=== PATIENT | female | born 1995 | race Caucasian/White ===

== ENCOUNTER 2023-10-01 07:27 | Outpatient (CLI) | payer MEDICAID, SELFPAY ==
--- NOTE | 2023-10-01 08:00 | CT_ITS ---
WS: [id number] CT ABDOMEN PELVIS TECHNIQUE: Contrast-enhanced CT of the abdomen and pelvis with coronal and sagittal reformatted image s. CLINICAL INFORMATION: BILATERAL LOWER QUADRAN ABDOMINAL SWELLING COMPARISON: None. DLP: 271.[address] scans at [facility] use at least one of these dose optimization techniques: automated e xposure control; mA and/or kV adjustment per patient size (includes targeted exams where dose is matc hed to clinical indication); or iterative reconstruction. FINDINGS: Lung bases are well aerated. Normal liver. Normal spleen. Normal GE junction. Portal vein and splenic vein are patent. Normal pancreas. Adrenal glands are normal. Normal renal parenchymal enhancement. N o hydronephrosis in either kidney. Normal caliber abdominal aorta. Mild diffuse body wall anasarca. N o evidence of subcutaneous mass or lesion in the periumbilical area. Mild induration in the subcutane ous fat can be seen with subcutaneous abdominal injections. Recommend clinical correlation. Urine distended bladder. Mild RIGHT colon and moderate sigmoid constipation. No evidence of small or large bowel obstruction. No other suspicious findings. IMPRESSION: 1. Mild induration in the periumbilical subcutaneous fat in the areas of concern. This can be seen w ith subcutaneous abdominal injections. Recommend clinical correlation. 2. Otherwise normal subcutaneous abdominal fat in the periumbilical area. Mild diffuse subcutaneous body wall anasarca involving the abdomen and pelvis. 3. No acute intra-abdominal findings. 4. Mild RIGHT colon and moderate sigmoid constipation. 5. No other suspicious findings.
[2023-10-01] MEDS: iohexol 350 mg/mL 500 mL Btl (per mL) PO (09:09)
[2023-10-01] MEDS: iohexol 350 mg/mL 500 mL Btl (per mL) IV (09:09)
== END 2023-10-01 07:28 | disposition home or self-care (01) ==
LOC: RAD 07:30
PROVIDERS: Visit Provider Nurse Practitioner Occupational Health
DX: R19.04 Left lower quadrant abdominal swelling, mass and lump (principal); K59.00 Constipation, unspecified
CPT/HCPCS: 74177; Q9967

== ENCOUNTER → 2024-03-04 14:02 | Outpatient (BNVA) | payer MEDICAID, SELFPAY | PROVIDERS: PCP Nurse Practitioner Occupational Health; Visit Provider Internal Medicine | DX: R07.9 Chest pain, unspecified (principal) | CPT/HCPCS: 93005 ==

== ENCOUNTER → 2024-11-24 13:16 | Outpatient (BNVA) | payer MEDICAID, SELFPAY | PROVIDERS: PCP Nurse Practitioner Occupational Health; Visit Provider Nurse Practitioner Family | DX: R00.2 Palpitations (principal); I49.8 Other specified cardiac arrhythmias | CPT/HCPCS: 93005 ==

== ENCOUNTER 2025-02-17 21:31 | Emergency (ER) | payer MEDICAID, SELFPAY ==
[2025-02-17] VITALS (10 sets, daily range): BP systolic 117–137; BP diastolic 75–88; PULSE 106–123; RESP 16–18; TEMP 36.7; O2SAT 97–100
--- OUTSIDE RECORDS SUMMARY | 2025-02-17 21:38 | XMS_ITS | Clinical Summary ---
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
--- OUTSIDE RECORDS SUMMARY | 2025-02-17 21:38 | XMS_ITS | Patient Health Record ---
Author Organization [facility] Address [address], [place] [id number] Care Team Providers Care Paper And Prints Restorer Name Role Phone Jennie Ghazal Primary Care Provider [phone] Allergies Allergen (clinical drug ingredient) Drug/Non Drug Allergy documented on EMR Reaction Allergy Type Onset Date Status all types of tapes (uncoded) Unknown Allergy Active Reason For Referral No Information Medications Medication SIG (Take, Route, Frequency, Duration) Notes Start Date End Date Status Sertraline HCl 100 MG TAKE 1 TABLET BY M OUTH EVERY DAY for 90 Active Cyanocobalamin 2000 MCG 1 tablet Orally Once a day 08/27/2016 Active Omeprazole 40 MG TAKE ONE CAPSULE BY MOUTH 1/2 HOUR BEFORE BREAKFAST for 90 Active Mehrsrtvci-QVSD-Jupjlwsr 50-325-40 MG 1 tablet as needed Orally every 4 hrs 11/06/2016 Active Vitamin D 2000 UNIT 1 tablet Orally Once a day 08/27/2016 Active Xanax 0.25 MG 1 tablet Orally Thre e times a day 08/05/2016 Active Social History Tobacco Use: Social History Observation Description Date Details (start date - stop date) Never Smoker NA - NA Tobacco Use/Smoking Question Answer Notes Are you a nonsmoker Additional Findings: Tobacco Non-User Current no n-smoker Alcohol Screen (Audit-C) Question Answer Notes Did you have a drink containing alcohol in the p ast year? No Points 0 Interpretation Negative Problems Problem Type SNOMED Code ICD Code Onset Dates Problem Status W/U Status Risk Notes Problem Pernicious anemia (91122577) Vitamin B12 deficiency anemia due to intrinsic factor deficiency (D51.0) Active confirmed Problem Vitamin D deficiency (71661853) Vitamin D deficiency, unspecified (E55.9) Active confirmed Problem Moderate major depression, single episode (46834327) Major depressive disorder, single episode, moderate (F32.1) Active confirmed Problem Anxiety disorder (177672560) Anxiety disorder, unspecified (F41.9) Active confirmed Problem Otitis media (49705976) Otitis media, unspecified, bilateral (H66.93) Active confirmed Problem Acute sinusitis (22356719) Acute sinusitis, unspecified (J01.90) Active confirmed Problem Allergic rhinitis (34818968) Allergic rhinitis, unspecified (J30.9) Active confirmed Problem Gastro-esophagea l reflux disease without esophagitis (419073551) Gastro-esophage al reflux disease without esophagitis (K21.9) Active confirmed Problem Headache (73320583) Headache (R51) Active confirmed Problem Body mass index 35.00 to 39.99 (942948075066937 ) Body mass index (BMI) 36.0-36.9, adult (Z68.36) Active confirmed Plan Of Treatment No Information Insurance Providers Payer Name Payer Address Payer Phone Subscriber Number Group Number Insured Name Patient Relationship to Insured Coverage Start Date Coverage End Date [facility] [address] [place] [address] [id number] TANMAY MARX Self - patient is the insured Medical (General) History Medical History History ICD Code anxiety depression tachacardia
--- NOTE | 2025-02-17 22:10 | ECG_ITS ---
[facility] Date: 2025-02-17 Pat Name: Joellen Reyes Department: Room: Gender: Female Shellfish Weigher: : 1995 Requested By: Dilshad Hernandez Order Number: [id number] Jay MD: Ra Lilly M.D. Measurements Intervals [place] Rate: 109 P: 43 [place]: 124 QRS: 41 QRSD: 114 T: 34 QT: 268 QTc: 361 Interpretive Statements SINUS TACHYCARDIA MODERATE INTRAVENTRICULAR CONDUCTION DELAY [110+ ms QRS DURATION] NONSPECIFIC T-WAVE ABNORMALITY ABNORMAL RHYTHM ECG Compared to ECG 11/24/2024 13:26:41 Intraventricular conduction delay now present T-wave abnormality now present Sinus rhythm no longer present Sinus arrhythmia no longer present Electronically Signed On 02-19-2025 15:27:13 CDT by Ra Lilly M.D. [id number]
[2025-02-17 22:14] LABS: Hematocrit 41.0 % (36-47); Hemoglobin 13.20 g/dL (11.27-16.99); Mean Corpuscular HGB Conc 32.2 g/dL (30-55); Mean Corpuscular Hemoglobin 25.6 pg (27-33); Mean Corpuscular Volume 79.5 fl (85-98); Nucleated Red Blood Cells % 0 %; Platelet Count 274 10^3/cmm (157-399); Red Blood Count 5.16 10^6/uL (3.85-5.65); White Blood Count 6.36 10^3/uL (3.29-11.43)
[2025-02-17 22:29] LABS: Troponin(5th) Baseline 24 ng/L (0-10)
[2025-02-17 22:33] LABS: Alanine Aminotransferase 12 U/L (0-33); Albumin Level 3.4 g/dL (3.5-5.2); Alkaline Phosphatase 59 U/L (35-105); Anion Gap 13.0 (5-19); Aspartate Amino Transferase 16 U/L (0-32); Blood Urea Nitrogen 5 mg/dL (6-20); Calcium 7.3 mg/dL (8.5-10.5); Carbon Dioxide 24 mmol/L (22-29); Chloride 111 mmol/L (98-107); Creatinine Clr Calc Pharmacy 123.0576; Globulin 2.2 g/dL (1.3-4.6); Glucose 76 mg/dL (65-115); Magnesium 1.7 mg/dL (1.7-2.3); Osmolality Calculated 296 mOsm/kg (285-295); Potassium 3.0 mmol/L (3.5-5.1); Sodium 145 mmol/L (136-145); Total Protein 5.6 g/dL (6.6-8.7)
--- NOTE | 2025-02-17 22:38 | ED_ITS ---
HPI - Arrhythmia/Palpitations 2 General: Chief Complaint: Arrhythmia/Palpitations Stated Complaint: Can't get heart rate down currently @155 Time Seen by Provider: 02/17/25 21:48 History of Present Illness: 29-year-old female presents with rapid h eart rate. Patient reports that at 1 point her heart rate got very rapid with rates into the 220s and calm down. Continued to stay in the 120s so presented to the ER. Had some maybe mild chest pain and discomfort in bilateral arms. Patient is currently on hormone replacement therapy. Patient is also on Vyvanse. Patient was recently cleared to start the vitamin advance by lead nurse because she has had episode of rapid heart rate in the past. Associated symptoms: Deny nausea, syncope or vomiting Related Data Home Medications ?Medication ?Instructions ?Recorded ?Confirmed aspirin 81 mg tablet,delayed 81 mg PO DAILY 03/04/24 0 11/24/24 release losartan 25 mg tablet 25 mg PO DAILY 03/04/2411/10 propranolol 10 mg tablet 10 mg PO DAILY PRN 03/04/24 11/24/24 testosterone cypionate 200 mg/mL 80 mg SUBCUT .[id number] 03/04/24 11/24/24 intramuscular kit (Testone CIK) traiamcinolone acetonide PO 03/04/24 11/24/24 venlafaxine 37.5 mg tablet mg PO 11/24/24 11/24/24 Allergies Allergy/AdvReac Type Severity Reaction Status Date / Time adhesive AdvReac schumacher skin Verified 02/17/25 21:42 Review of Systems 2 Const: Denies: fever(s) or chills Card: Reports: chest pain and palpitations; Denies: lightheadedness or syncope Resp: Denies: dyspnea or productive cough GI: Denies: abdominal pain, nausea or vomiting Musc: Denies: neck pain or back pain PFSH ED 2 PFSH: Social History Smoking and tobacco/nicotine status: never used tobacco/nicotine Physical Exam 2 Const: COMMON NORMALS: no acute distress, patient oriented x3 and alert Resp: COMMON NORMALS: normal respiratory effort, No use of accessory muscles and clear to auscultation bilaterally AUSCULTATION: clear to auscultation bilaterally Cardio: COMMON NORMALS: regular rhythm RATE: tachycardic RHYTHM: regular rhythm GI: COMMON NORMALS: Soft to palpation and non-tender PALPATION: Yes Soft to palpation Neuro: COMMON NORMALS: patient oriented x3, moves all extremities and no focal motor deficits SENSORIUM/ORIENTATION: Yes alert Psych: COMMON NORMALS: cooperative and speech normal SPEECH: Yes normal speech Course 2 Vital Signs: Vital signs: Vital Signs Temperature 98.0 F 02/17/25 21:34 Pulse Rate 100 02/18/25 03:30 Respiratory Rate 15 02/18/25 03:30 Blood Pressure 129/86 02/18/25 03:30 Pulse Oximetry 100 02/18/25 03:30 Oxygen Delivery Me thod Room Air 02/17/25 22:45 MDM - Arrhythmia/Palpitations Medical Decision Making Patient's diagnostic studies were ordered and reviewed. Patient had 3 stable troponins a likely near baseline. Patient's heart rate improved significantly with IV fluids and she felt significantly better. Patient was given some IV fluids I suspect she was likely mildly dehydrated with the appropriate response to the heart rate. Heart rates went from the 120s down into the 80s at discharge. Patient was recommended follow-up with cardiology for further outpatient evaluation. She was stable upon discharge Lab Data 02/17/25 21:56 02/17/25 21:56 Laboratory Results WBC 6.36 10^3/uL (3.29-11.43) 02/17/25 21:56 RBC 5.16 10^6/uL (3.85-5.65) 02/17/25 21:56 Hgb 13.20 g/dL (11.27-16.99) 02/17/25 21:56 Hct 41.0 % (36-47) 02/17/25 21:56 MCV 79.5 fl (85-98) L 02/17/25 21:56 MCH 25.6 pg (27-33) L 02/17/25 21:56 MCHC 32.2 g/dL (30-55) 02/17/25 21:56 RDW 12.9 % (12.1-15.1) 02/17/25 21:56 Plt Count 274 10^3/cmm (157-399) 02/17/25 21:56 MPV 9.4 fL (7.4-10.4) 02/17/25 21:56 Neut % (Auto) 73.8 % 02/17/25 21:56 Lymph % (Auto) 17.9 % 02/17/25 21:56 [place] % (Auto) 6.9 % 02/17/25 21:56 Eos % (Auto) 0.3 % 02/17/25 21:56 Baso % (Auto) 0.6 % 02/17/25 21:56 Neut # (Auto) 4.69 10^3/uL (1.8-7.7) 02/17/25 21:56 Lymph # (Auto) 1.1 10^3/uL (0.8-4.8) 02/17/25 21:56 [place] # (Auto) 0.4 10^3/uL (0.2-0.9) 02/17/25 21:56 Eos # (Auto) 0.0 10^3/uL (0.0-0.8) 02/17/25 21:56 Baso # (Auto) 0.0 10^3/uL (0.0-0.1) 02/17/25 21:56 Nucleated RBC % (auto) 0 % 02/17/25 21:56 Nucleated RBCs # 0.0 /100WBC 02/17/25 21:56 D-Dimer 0.60 ug/mLFEU (0-0.59) H 02/17/25 21:56 Sodium 145 mmol/L (136-145) 02/17/25 21:56 Potassium 3.0 mmol/L (3.5-5.1) L 02/17/25 21:56 Chloride 111 mmol/L (98-107) H 02/17/25 21:56 Carbon Dioxide 24 mmol/L (22-29) 02/17/25 21:56 Anion Gap 13.0 (5-19) 02/17/25 21:56 BUN 5 mg/dL (6-20) L 02/17/25 21:56 Creatinine 0.7 mg/dL (0.5-0.9) 02/17/25 21:56 GFR Calculation 100.4 mL/min (90-130) 02/17/25 21:56 Glucose 76 mg/dL (65-115) 02/17/25 21:56 Calculated Osmolality 296 mOsm/kg (285-295) H 02/17/25 21:56 Calcium 7.3 mg/dL (8.5-10.5) L 02/17/25 21:56 Magnesium 1.7 mg/dL (1.7-2.3) 02/17/25 21:56 Total Bilirubin 0.3 mg/dL (0.15-1.2) 02/17/25 21:56 AST 16 U/L (0-32) 02/17/25 21:56 ALT 12 U/L (0-33) 02/17/25 21:56 Alkaline Phosphatase 59 U/L (35-105) 02/17/25 21:56 Troponin T 5th Gen ng/L 20 ng/L (0-10) H 02/18/25 02:20 Troponin T Baseline 24 ng/L (0-10) H 02/17/25 21:56 Troponin T 120 Minute 27.46 ng/L (0-10) H 02/18/25 00:10 Delta Troponin T 3.46 ABS# (0-10) 02/18/25 00:10 Total Protein 5.6 g/dL (6.6-8.7) L 02/17/25 21:56 Albumin 3.4 g/dL (3.5-5.2) L 02/17/25 21:56 Globulin 2.2 g/dL (1.3-4.6) 02/17/25 21:56 Urine Color Yellow (Yellow) 02/17/25 23:24 Urine Appearance Clear (CLEAR) 02/17/25 23:24 Urine pH 7.0 (5-7) 02/17/25 23:24 Ur Specific [place] 1.008 (1.005-1.030) 02/17/25 23:24 Urine Protein Negative (Negative) 02/17/25 23:24 Urine Glucose (UA) Negative (Normal) 02/17/25 23:24 Urine Ketones Negative (Negative) 02/17/25 23:24 Urine Blood Negative (Negative) 02/17/25 23:24 Urine Nitrate Negative (Negative) 02/17/25 23:24 Urine Bilirubin Negative (Negative) 02/17/25 23:24 Urine Urobilinogen 1.0 mg/dL (Negative) 02/17/25 23:24 Ur Leukocyte Esterase 1+ (Negative) A 02/17/25 23:24 Urine RBC 0-2 /hpf (0-2) 02/17/25 23:24 Urine WBC 6-10 /hpf (0-5) 02/17/25 23:24 Ur Squamous Epith Cells 0-5 /hpf (0-5) 02/17/25 23:24 Amorphous Sediment Not Reportable 02/17/25 23:24 Urine Bacteria None seen /hpf (NONE) 02/17/25 23:24 Hyaline Casts 0-4 /lpf H 02/17/25 23:24 No radiology studies performed this visit Discharge Plan Discharge Patient Disposition: Home Clinical Impression: Palpitations, Sinus tachycardia Condition: Stable Prescriptions: No Action aspirin 81 mg tablet,delayed release (DR/EC) 81 mg PO DAILY Testone CIK 200 mg/mL kit 80 mg SUBCUT .[id number] propranolol 10 mg tablet 10 mg PO DAILY PRN losartan 25 mg tablet 25 mg PO DAILY traiamcinolone acetonide PO venlafaxine 37.5 mg tablet PO Discharge Orders: Discharge ED (Routine); Ordered 02/18/25 Ordered By: Dilshad Hernandez Referrals: Padmini Sheth FNP [Primary Care Provider] Discharge Diet: Usual diet Discharge Activity: Increase activity as tolerated Patient Instructions: Tachycardia (ED), Opioid Safety, Pain Management, Patient Portal & [place] Instructions Activity Restrictions/Additional Instructions: Please follow-up with the lead nurse for further evaluation and recheck of your symptoms. Return to the ER as needed. Print Language: Chinese Coding Level of Care Code ED Special Education Secretary for Fredy Reyes
[2025-02-17 23:50] LABS: Add Urine Microscopic? YES; Glucose Urine UA Negative (Normal); Nitrate Urine Negative (Negative); Specific Gravity, Urine 1.008 (1.005-1.030)
[2025-02-18] VITALS (14 sets, daily range): BP systolic 113–129; BP diastolic 68–93; PULSE 78–105; RESP 15–18; O2SAT 98–100
--- NOTE | 2025-02-18 00:19 | ECG_ITS ---
[facility] [employer] Test Date: 2025-02-18 Pat Name: Joellen Reyes Department: Room: Gender: Female Cooperative Education Director: : 1995 Requested By: Dilshad Hernandez Order Number: [id number] Jay MD: Ra Lilly M.D. Measurements Intervals [place] Rate: 87 P: 48 [place]: 148 QRS: 25 QRSD: 94 T: 22 QT: 314 QTc: 378 Interpretive Statements SINUS RHYTHM WITH SINUS ARRHYTHMIA NONSPECIFIC ST & T-WAVE ABNORMALITY Compared to ECG 02/17/2025 21:38:01 Sinus tachycardia no longer present Intraventricular conduction delay no longer present T-wave abnormality still present Electronically Signed On 02-19-2025 15:33:25 CDT by Ra Lilly M.D. [email or web address] [id number]
[2025-02-18 00:44] LABS: Troponin 5 2HR 27.46 ng/L (0-10); Troponin 5 2HR Delta 3.46 ABS# (0-10)
[2025-02-18 02:59] LABS: Troponin T (5th) Once 20 ng/L (0-10)
== END 2025-02-18 03:52 | disposition home or self-care (01) ==
PROVIDERS: Emergency Provider Student in an Organized Health Care Education/Training Program; PCP Nurse Practitioner Occupational Health
DX: R00.0 Tachycardia, unspecified (principal); Z79.82 Long term (current) use of aspirin; Z79.899 Other long term (current) drug therapy
CPT/HCPCS: 36415; 80053; 81001; 83735; 84484; 85025; 85378; 93005; 96360; 96361; 99284; J7030; J9999

== ENCOUNTER → 2025-03-03 15:29 | Outpatient (BNVA) | payer MEDICAID, SELFPAY | PROVIDERS: PCP Nurse Practitioner Occupational Health; Visit Provider Nurse Practitioner Family | DX: R00.2 Palpitations (principal) | CPT/HCPCS: 36415; 80048; 84439; 84443 ==

== ENCOUNTER 2025-04-06 12:32 | Outpatient (CLI) | payer MEDICAID, SELFPAY ==
--- NOTE | 2025-04-06 12:45 | USCV_ITS ---
Joellen Reyes Age: 29 Gender: F : 1995 Exam Date: 04/06/2025 12:49 Ordering Phys: Tanisha Zambrano NP Technologist: Exam Location: [facility] [place] Indication: palp BP: 140 / 80 HR: 99 Rhythm: Sinus Technical Quality: Adequate MEASUREMENTS (Male / Female) Normal Values 2D ECHO LV Diastolic Diameter PLAX 3.8 cm 4.2 - 5.9 / 3.9 - 5.3 cm IVS Diastolic Thickness 1.0 cm 0.6 - 1.0 / 0.6 - 0.9 cm IVS Systolic Thickness 1.8 cm LVPW Diastolic Thickness 1.0 cm 0.6 - 1.0 / 0.6 - 0.9 cm LVPW Systolic Thickness 1.4 cm LVOT Diameter 1.7 cm LV Ejection Fraction 2D Teich 66.3 % LV Ejection Fraction MOD 4C 60.8 % LA Diameter 2.4 cm RA Systolic Volume 4C AL 32.5 ml RA Systolic Volume 4C MOD 31.0 ml M-MODE LA Ao Ratio MM 1.3 AV Cusp Separation MM 2.1 cm DOPPLER AV Peak Velocity 138.0 cm/s LVOT Peak Velocity 119.0 cm/s AV Area Cont Eq vti 2.5 cm squared AV Area Cont Eq pk 1.9 cm squared MV Area PHT 4.6 cm squared Mitral E to A Ratio 1.3 TV Peak Velocity 153.5 cm/s TR Peak Velocity 157.0 cm/s TR Peak Gradient 9.9 mmHg TV Peak E Velocity 87.0 cm/s PV Peak Velocity 143.0 cm/s FINDINGS Left Ventricle Normal left ventricular size and systolic function, EF 66%. Normal left ventricular wall thickness. Normal left ventricular diastolic function Right Ventricle Normal right ventricular size and systolic function. RVSP could not be calculated due to incomplete tricuspid regurgitation velocity profile. Right Atrium Normal right atrial size. Left Atrium Normal left atrial size. Mitral Valve No mitral valve stenosis. No mitral valve regurgitation. Aortic Valve No aortic valve stenosis. No aortic valve regurgitation. Tricuspid Valve No tricuspid valve regurgitation. Pulmonic Valve No pulmonary valve stenosis. No pulmonary valve regurgitation. Pericardium No pericardial effusion. Aorta Normal aorta size at the level of the sinus of valsalva. IVC Inferior vena cava not visualized. CONCLUSIONS 1. Normal left ventricular and right ventricular size and function. Left ventricular EF 66%. 2. No significant valvular abnormalities. Tristan Stevenson MD, FACC (Electronically Signed) Final Date: 07 April 2025 21:17 S
== END 2025-04-06 12:33 | disposition home or self-care (01) ==
LOC: RAD 12:33
PROVIDERS: PCP Nurse Practitioner Occupational Health; Visit Provider Nurse Practitioner Family
DX: R00.0 Tachycardia, unspecified (principal)
CPT/HCPCS: 93306

== ENCOUNTER 2025-04-27 07:26 | Outpatient (CLI) | payer MEDICAID, SELFPAY ==
[2025-04-27 08:00] VITALS: BP 134/94; PULSE 87; RESP 16; TEMP 37.1; O2SAT 98; BMI 30.7
--- NOTE | 2025-04-27 08:17 | P.HP_ITS ---
Providers/Chief Complaint 2 Admitting Physician: ANA MARIA Lilly MD Primary Care Provider: NIMO Conway Chief Complaint: R00.0 History of Present Illness Joellen Reyes is a 29 year old female (gender ID male) presents with complaints of palpitation and dizziness. She had a several heart monitors in the past which could not catch these events. Patient also is allergic to tape. Because of the ongoing infrequent episodes, in order to further evaluate the symptoms, an implantable cardiac sonographer was recommended. Patient has a history of essential benign hypertension. Review of Systems 2 Narrative: CONSTITUTIONAL: No fever or chills. EYES: No blurring of vision or other visual disturbances lately. ENT: No hoarseness of voice, auditory disturbances or sore throat. CARDIOVASCULAR: As mentioned above. RESPIRATORY: No significant cough. GASTROINTESTINAL: No hematemesis or melena. GENITOURINARY: No dysuria or hematuria. INTEGUMENTARY: No skin rashes or history of skin cancer. NEURO: No transient ischemic attacks or amaurosis. PSYCHIATRIC: No history of psychosis or major depression. HEMATOLOGIC: No bleeding disorders or significant anemia. ENDOCRINE: No history of polyuria or polydipsia. MUSCULOSKELETAL: No recent joint pain or swelling. ALLERGY/IMMUNOLOGY: As mentioned above. Medications/Allergies Home Medications ?Medication ?Instructions ?Recorded ?Confirmed ?Last Taken ?Type aspirin 81 mg tablet,delayed 81 mg PO DAILY 03/04/24 0 04/27/25 04/26/25 13:00 History release losartan 25 mg tablet 25 mg PO DAILY 03/04/2404/1204/26/25 13:00 History propranolol 10 mg tablet 10 mg PO DAILY PRN Anxiety 0 03/04/24 04/27/25 Unknown History testosterone cypionate 200 mg/mL 80 mg SUBCUT .[id number] 03/04/24 04/27/25 Unknown History intramuscular kit (Testone CIK) traiamcinolone acetonide 1 100 g topical DAILY PRN Sk in 03/04/24 03/03/25 Unknown History Irritation cholecalciferol (vitamin D3) 50 50 mcg PO DAILY 04/27/25 04/26/25 13:00 History mcg (2,000 unit) capsule levocetirizine 5 mg tablet 5 mg PO DAILY 03/03/2504/12 Unknown History lisdexamfetamine 30 mg capsule 30 mg PO DAILY 03/03/25 04/27/25 Unknown History (Vyvanse) magnesium citrate 70 mg-potassium 1 cap PO DAILY 03/0304/27/25 04/26/25 13:00 History citrate 99 mg capsule venlafaxine 75 mg capsule,extended 75 mg PO DAILY 02/1004/27/25 04/26/25 13:00 History release 24 hr Allergies Allergy/AdvReac Type Severity Reaction Status Date / Time adhesive AdvReac schumacher skin Verified 03/22/25 14:04 PFSH Acute 2 PFSH: Social History Smoking and tobacco/nicotine status: current some day tobacco/nicotine user (marijuana USE ONLY) Vitals/I&O/Wt Last Vital Signs Temp 98.7 F 04/27/25 08:00 Pulse 87 04/27/25 08:00 Resp 16 04/27/25 08:00 BP 134/94 04/27/25 08:00 Pulse Ox 98 04/27/25 08:00 O2 Del Method Room Air 04/27/25 08:00 Weight last 48 hrs Weight 179 lb Physical Exam 2 Narrative: GENERAL: The patient is alert and oriented times three. Not in any acute distress. HEENT: No significant pallor, icterus or lymphadenopathy.Oral cavity: There are no mucous membrane lesions. NECK: Trachea appears to be central. No masses noted. No JVD or thyromegaly appreciated. RESPIRATORY: Chest is symmetrical. No intercostals muscle retraction or any accessory muscle activation. There is no chest wall tenderness. Breath sounds are heard bilaterally. No rales or rhonchi heard. No evidence of any consolidation. BREASTS: Deferred. HEART: The heart sounds are normal. No S3 or S4. No significant murmurs. No pericardial rub ABDOMEN: No vessel pulsations or distention. No tenderness. No organomegaly appreciated. Bowel sounds are normally heard. : Deferred. RECTAL: Deferred. LYMPHATIC: No lymphadenopathy noted in the neck. EXTREMITIES: No edema or cyanosis. No clubbing. MUSCULOSKELETAL: No acute joint deformities or swelling SKIN: There are no significant rashes or ecchymosis NEUROPSYCHIATRIC: The patient is alert and oriented x3. Appears to be in a good mood. No tremors or rigidity noted. Data 04/27/25 08:06 Other Labs: Laboratory Last Values WBC 6.14 10^3/uL (3.29-11.43) 04/27/25 08:06 RBC 5.42 10^6/uL (3.85-5.65) 04/27/25 08:06 Hgb 12.60 g/dL (11.27-16.99) 04/27/25 08:06 Hct 40.4 % (36-47) 04/27/25 08:06 MCV 74.5 fl (85-98) L 04/27/25 08:06 MCH 23.2 pg (27-33) L 04/27/25 08:06 MCHC 31.2 g/dL (30-55) 04/27/25 08:06 RDW 14.0 % (12.1-15.1) 04/27/25 08:06 Plt Count 221 10^3/cmm (157-399) 04/27/25 08:06 MPV 9.4 fL (7.4-10.4) 04/27/25 08:06 Neut % (Auto) 67.3 % 04/27/25 08:06 Lymph % (Auto) 25.1 % 04/27/25 08:06 [place] % (Auto) 6.5 % 04/27/25 08:06 Eos % (Auto) 0.0 % 04/27/25 08:06 Baso % (Auto) 0.8 % 04/27/25 08:06 Neut # (Auto) 4.13 10^3/uL (1.8-7.7) 04/27/25 08:06 Lymph # (Auto) 1.5 10^3/uL (0.8-4.8) 04/27/25 08:06 [place] # (Auto) 0.4 10^3/uL (0.2-0.9) 04/27/25 08:06 Eos # (Auto) 0.0 10^3/uL (0.0-0.8) 04/27/25 08:06 Baso # (Auto) 0.1 10^3/uL (0.0-0.1) 04/27/25 08:06 Nucleated RBC % (auto) 0 % 04/27/25 08:06 Nucleated RBCs # 0.0 /100WBC 04/27/25 08:06 A&P Assessment and plan 1. Palpitations: Etiology is not clear. For further evaluation, an implantable cardiac sonographer would be appropriate. 2. Primary hypertension: The blood pressure is mildly elevated. 3. Dizziness: Could be related to arrhythmia. Plan: Patient is scheduled for the implantable cardiac sonographer today. Based on the monitor findings, further recommendations will be made. Patient should be able to go home after implantation. PDMP PDMP Reviewed: Not Reviewed Attestations 2 Medical Necessity Statement*: Patient may go home after device implantation. Coding Level of Care Code 98264 Diagnoses Palpitations R00.2 Primary hypertension I10 Hypertension type: primary hypertension Dizziness R42
--- NOTE | 2025-04-27 08:21 | W.PM.OPSUD ---
Surgery/Procedure H&P Update DATE OF PROCEDURE: April 27, 2025 DATE H&P PERFORMED: 04/27/25 H&P UPDATE INFORMATION: I have reviewed H&P completed within last 30 days, I have examined patient prior to procedure and No changes to prior documentation PREOP DIAGNOSIS: Palpitations/dizziness PRIMARY INDICATION FOR PROCEDURE: As above PLANNED PROCEDURE: Operation Date: 04/27/25 08:30 Proposed Procedures p Loop Recorder Insertion(Not Applicable) - Ra Lilly MD
[2025-04-27 08:23] LABS: Hematocrit 40.4 % (36-47); Hemoglobin 12.60 g/dL (11.27-16.99); Mean Corpuscular HGB Conc 31.2 g/dL (30-55); Mean Corpuscular Hemoglobin 23.2 pg (27-33); Mean Corpuscular Volume 74.5 fl (85-98); Nucleated Red Blood Cells % 0 %; Platelet Count 221 10^3/cmm (157-399); Red Blood Count 5.42 10^6/uL (3.85-5.65); White Blood Count 6.14 10^3/uL (3.29-11.43)
--- NOTE | 2025-04-27 08:59 | P.OP_ITS ---
Operative Report Date of procedure: April 27, 2025 Surgeon: Ra Lilly MD Procedure: Date of Procedure: 04/27/2025 Name of the procedure: IMPLANTABLE ENGINE SETTER INSERTION [facility] REFERRING PROVIDER: Tanisha Zambrano PREOPERATIVE DIAGNOSIS: Palpitations/dizziness POSTOPERATIVE DIAGNOSIS: Same. ESTIMATED BLOOD LOSS: None COMPLICATIONS: None. BRIEF HISTORY: Patient presented with recurrent episodes of palpitations/dizziness. Patient had several heart monitors in the past which could not catch the symptoms because of the infrequent nature and also patient's allergic reaction to the tape. In order to further evaluate the symptoms, an implantable playground monitor was recommended. PROCEDURE: The procedure was explained to the patient in detail with the risks and benefits. The risk of bleeding, hematoma, vascular injury, infection and other concomitant complications were explained in detail. The patient understood this well and consented to proceed. The patient was brought to the [facility]. The patient was given 2 g of Keflex preoperatively. The left side of the chest was cleaned and draped in a sterile fashion. 1% Xylocaine was used as local anesthetic agent. An incision was made in the left fourth intercostal space. Making use of the application device, the implantable playground monitor was inserted, subcutaneously. 5 minutes of manual pressure was applied, at the puncture site. The patient tolerated the procedure very well and there were no complications. No bleeding or hematoma. Steri-Strips were applied over the insertion site followed by a sterile dressing. IMPLANTED DEVICE Reveal LINQ Model number: LNQ [id number] Serial number: [id number] Make: [employer] Bedside monitor [employer] relay Model #29643 Serial number [id number] Parameters: Standard settings were applied( (tachycardia rate of 162beats per minute , bradycardia rate of 40 beats per minute and a pause of 4 seconds ; symptom recording -2 episodes of 15minutes. Atrial fibrillation detection was turned on- recording threshold of ->6 minutes. Sensitivity was kept at 0.035 mV) The R wave sensing was 0.37 mV
[2025-04-27 09:22] VITALS: BP 130/82; PULSE 88; RESP 16; O2SAT 98
== END 2025-04-27 09:42 | disposition home or self-care (01) ==
PROVIDERS: PCP Nurse Practitioner Occupational Health; Visit Provider Internal Medicine Cardiovascular Disease
PROC: (CPT 33285; principal; 2025-04-27 08:30)
DX: R00.2 Palpitations (principal); R42 Dizziness and giddiness; I10 Essential (primary) hypertension; Z79.82 Long term (current) use of aspirin; F12.90 Cannabis use, unspecified, uncomplicated
CPT/HCPCS: 33285; 85025; C1764; C1769; J9999

== ENCOUNTER 2025-06-28 15:42 | Outpatient (CLI) | payer MEDICAID, SELFPAY ==
--- NOTE | 2025-06-28 15:49 | US_ITS ---
WS: [id number] ULTRASOUND RENAL TECHNIQUE: Ultrasound examination of both kidneys. CLINICAL INFORMATION: elevated creatinine COMPARISON: None. FINDINGS: RIGHT: Right kidney is normal in size and appearance. Echogenicity: Normal. Cortical thickness: 1.2 cm; Normal. Hydronephrosis: None. Perinephric fluid: None. Right kidney measures: 9.6 cm x 5.2 cm x 4.9 cm. LEFT: Left kidney is normal in size and appearance. Echogenicity: Normal. Cortical thickness: 1.0 cm; Normal. Hydronephrosis: None. Perinephric fluid: None. Left kidney measures: 9.8 cm x 5.0 cm x 4.3 cm. Normal visualized aorta. Bladder is decompressed. US/US renal BI* [id number] IMPRESSION: 1. No hydronephrosis in either kidney. 2. Bladder is decompressed. 3. No other acute findings.
== END 2025-06-28 15:43 | disposition home or self-care (01) ==
LOC: RAD 15:43
PROVIDERS: PCP Nurse Practitioner Occupational Health; Visit Provider Nurse Practitioner Occupational Health
DX: R79.9 Abnormal finding of blood chemistry, unspecified (principal); N32.89 Other specified disorders of bladder
CPT/HCPCS: 76770